=== PATIENT | female | born 1990 | race Two or more races ===

== ENCOUNTER 2016-12-03 02:49 | Observation (INO) | payer MEDICAID | END 2016-12-03 04:47 | disposition home or self-care (01) | DRG 566 | LOC: LDRP 02:49 | PROVIDERS: ADMIT Obstetrics & Gynecology; ATTEND Obstetrics & Gynecology | DX: O62.9 Abnormality of forces of labor, unspecified (principal); Z3A.36 36 weeks gestation of pregnancy | CPT/HCPCS: G0378 ×2; 59025; 81002 ==

== ENCOUNTER 2016-12-18 13:40 | Observation (INO) | payer MEDICAID | END 2016-12-18 14:40 | disposition home or self-care (01) | DRG 566 | LOC: LDRP 13:40 | PROVIDERS: ADMIT Specialist; ATTEND Specialist | DX: O42.92 Full-term premature rupture of membranes, unspecified as to length of time between rupture and onset of labor (principal); O26.893 Other specified pregnancy related conditions, third trimester; N89.8 Other specified noninflammatory disorders of vagina; Z3A.38 38 weeks gestation of pregnancy; R51 Headache | CPT/HCPCS: 59025; 81002; G0378 ==

== ENCOUNTER 2016-12-21 17:15 | Observation (INO) | payer MEDICAID ==
[~2016-12-21] VITALS: Ht 167.6 cm; Wt 71.7 kg
[2016-12-21] MEDS ORDERED: LACT. RINGERS/OXYTOCIN 20UNITS 1,000 ML IV SCH (21:02)
[2016-12-21] MEDS ORDERED: LACTATED RINGER'S 1,000 ML IV SCH (21:02)
[2016-12-21] MEDS ORDERED: DERMOPLAST 60ML BOTTLE TOP PRN (21:15)
[2016-12-21] MEDS ORDERED: NALBUPHINE HCL 10 MG/1ml INJECTION IV PRN (21:15)
[2016-12-21] MEDS ORDERED: LIDOCAINE 2%HCL (LOCAL ANESTH.) INJ 20ML MDV IJ ONE (21:15)
[2016-12-21] MEDS ORDERED: METHYLERGONOVINE MALEATE 0.2 MG/ML AMP IM PRN (21:15)
[2016-12-21] MEDS ORDERED: CARBOPROST TROMETHAMINE 250 MCG/1ML VIAL IM PRN (21:15)
[2016-12-21] MEDS ORDERED: PHISODERM TOP SOLN 240ML BTL TOP PRN (21:15)
[2016-12-21] MEDS ORDERED: PROMETHAZINE HCL 25 MG/ML 1ML IV PRN (21:15)
[2016-12-21] MEDS ORDERED: WITCH HAZEL-GLYCERIN PAD TOP PRN (21:15)
[2016-12-21 21:41] LABS: Urine Bilirubin Negative (Negative); Urine Blood TRACE /uL (Negative); Urine Color Yellow (Yellow); Urine Glucose Normal (Normal); Urine Ketone 1+ (Negative); Urine Nitrite Negative (Negative); Urine RBC <1 /hpf (0 - 4); Urine Squamous Epithelial Cell FEW /hpf (<5); Urine Urobilinogen Normal (Negative); Urine pH 6.5 (5.0-8.0)
[2016-12-21 21:41] LABS: Basophils # (auto) 0 uL; Basophils % (auto) 0.3 % (0.0-2.0); Eosinophils # (auto) 0 uL; Eosinophils % (auto) 0.4 % (0.0-7.0); Hematocrit 36.9 % (36.0-46.0); Hemoglobin 12.4 g/dL (12.2-16.2); Mean Corpuscular Hemoglobin 29.6 pg (28.0-32.0); Mean Corpuscular Hgb Conc. 33.7 g/dL (32.0-36.0); Mean Corpuscular Volume 87.8 fL (80.0-100.0); Mean Platelet Volume 11.7 fL (7.4-10.4); Monocytes # (auto) 0.6 uL; Monocytes % (auto) 6.4 % (0.0-12.0); Neutrophils # (auto) 6.3 uL; Neutrophils % (auto) 70.9 % (37.0-80.0); Platelet Count (auto) 166 10^3/uL (140-450); Red Cell Distribution Width 14.7 % (11.6-16.0); White Blood Cell 8.9 10^3/uL (4.4-10.8)
[2016-12-21 21:54] LABS: Albumin 2.8 g/dL (3.4-5.0); BUN/Creatinine Ratio 9.4; Calcium 8.6 mg/dL (8.5-10.1); Potassium 3.7 mmol/L (3.5-5.1)
[2016-12-21 21:55] LABS: INR 1.01 (0.9-1.15); Partial Thromboplastin Time 31.3 sec (22.64-33.71); Prothrombin Time 10.4 sec (9.37-12.3)
[2016-12-21 21:57] LABS: Bilirubin, Total 0.6 mg/dL (0.2-1.0)
[2016-12-21] MEDS ORDERED: LIDOCAINE HCL 2 %PF INJ 10ML AMP IJ ONE (22:30)
[2016-12-21] MEDS ORDERED: NALOXONE HCL 0.4 MG/ML VIAL IV ONE (22:30)
[2016-12-21] MEDS ORDERED: fentaNYL CITRATE 100 MCG/2 ML VL IV ONE (22:30)
[2016-12-21] MEDS ORDERED: ePHEDrine SULFATE 50 MG/ML AMP IV ONE (22:30)
[2016-12-21] MEDS ORDERED: fentaNYL W ROPIVACAINE 150 ML EPI SCH (22:30)
[2016-12-21] MEDS ORDERED: BUTORPHANOL TARTRATE 2 MG/1 ML VIAL ONE (23:01)
[2016-12-22] MEDS ORDERED: LACT. RINGERS/OXYTOCIN 20UNITS 500 ML IV ONE (02:13)
[2016-12-22] MEDS ORDERED: ACETAMINOPHEN 325 MG TAB PO PRN (02:15)
[2016-12-22] MEDS ORDERED: RHO (D) IMMUNE GLOBULIN 300 MCG INJ IM ONE (02:30)
[2016-12-22 08:00] VITALS: BP 116/73
[2016-12-22 12:00] VITALS: BP 116/72
[2016-12-22] MEDS: IBUPROFEN 600 MG TAB PO PRN ×2 (14:13→20:00)
[2016-12-22 16:00] VITALS: BP 110/63
[2016-12-22 18:00] VITALS: BP 117/67
[2016-12-22 19:30] VITALS: BP 131/79
[2016-12-22 23:15] VITALS: BP 122/76
[2016-12-23 04:00] VITALS: BP 108/56
[2016-12-23] MEDS ORDERED: PREN-145 OR (07:02)
[2016-12-23 07:23] VITALS: BP 100/57
[2016-12-23] MEDS: IBUPROFEN 600 MG TAB PO PRN (07:56)
== END 2016-12-23 11:45 | disposition home or self-care (01) | DRG 560 ==
LOC: LDRP 17:15
PROVIDERS: ADMIT Specialist; ATTEND Specialist
PROC: 10E0XZZ Delivery of Products of Conception, External Approach (ICD-10-PCS; principal; 2016-12-21)
DX: O77.0 Labor and delivery complicated by meconium in amniotic fluid (principal); O21.2 Late vomiting of pregnancy; O62.9 Abnormality of forces of labor, unspecified; O69.81X0 Labor and delivery complicated by cord around neck, without compression, not applicable or unspecified; Z37.0 Single live birth; Z3A.39 39 weeks gestation of pregnancy
CPT/HCPCS: 36415; 51702; 59025; 59409; 80053; 81001; 81002; 85025; 85610; 85730; 86850; 86900; 86901; 90384; 96372; G0378; J0595; J2590; 96365; 96366; 96375

== ENCOUNTER 2021-06-05 04:15 | Observation (INO) | payer MEDICAID ==
[~2021-06-05] VITALS: Ht 167.6 cm; Wt 78.0 kg
[~2021-06-05 04:15] MED LIST: PREN-145 OR
[2021-06-05] MEDS ORDERED: LACTATED RINGER'S 1,000 ML IV ONE (05:30)
[2021-06-05] MEDS ORDERED: ACETAMINOPHEN IV 1000 MG/100ML (10MG/ML) IV PRN (05:45)
[2021-06-05 05:54] LABS: Basophils # (auto) 0 10 ^3/uL (0-0.2); Basophils % (auto) 0.5 % (0.0-2.0); Eosinophils # (auto) 0.1 10 ^3/uL (0-0.8); Hematocrit 33.2 % (36.0-46.0); Hemoglobin 11.6 g/dL (12.2-16.2); Lymphocytes # (auto) 1.9 10 ^3/uL (0.4-5.4); Lymphocytes % (auto) 21.8 % (10.0-50.0); Mean Corpuscular Hemoglobin 29.8 pg (28.0-32.0); Mean Corpuscular Hgb Conc. 34.8 g/dL (32.0-36.0); Mean Corpuscular Volume 85.5 fL (80.0-100.0); Monocytes # (auto) 0.6 10 ^3/uL (0-1.3); Monocytes % (auto) 6.7 % (0.0-12.0); Neutrophils # (auto) 6.2 10 ^3/uL (1.6-8.6); Red Blood Cells 3.88 10^6/uL (4.0-5.20); Red Cell Distribution Width 13.4 % (11.8-14.3); White Blood Cell 8.9 10^3/uL (4.4-10.8)
[2021-06-05 06:14] LABS: Albumin 2.5 g/dL (3.4-5.0); Calcium 8.6 mg/dL (8.5-10.1); Potassium 4.3 mmol/L (3.5-5.1)
[2021-06-05 06:17] LABS: BUN/Creatinine Ratio 7.5; Bilirubin, Total 0.7 mg/dL (0.2-1.0); Total Protein 6.7 g/dL (6.4-8.2)
[2021-06-05 06:18] LABS: Alcohol, Urine < 3.0 mg/dL (0-10); Amphetamine Screen, Urine NEGATIVE (NEGATIVE); Barbiturate Scree,Urine NEGATIVE (NEGATIVE); Benzodiazephine Screen, Urine NEGATIVE (NEGATIVE); Cannabinoid Screen, Urine NEGATIVE (NEGATIVE); Cocaine Screen, Urine NEGATIVE (NEGATIVE); Opiate Scree,Urine NEGATIVE (NEGATIVE); Phencyclidine Screen, Urine NEGATIVE (NEGATIVE)
[2021-06-05] MEDS ORDERED: ACET-1156 PO ×2 (06:57)
[2021-06-05] MEDS ORDERED: BETAMETHASONE ACET (30mg/5ml) 5ml Vial 6mg/ml IM SCH (07:35)
[2021-06-05] MEDS ORDERED: TERBUTALINE SULFATE 1 MG/ML 1ML VIAL SC SCH (07:45)
[2021-06-05 11:11] LABS: Urine Bacteria MANY /hpf (None Seen); Urine Blood Negative /uL (Negative); Urine Specific Gravity 1.011 (1.001-1.035); Urine WBC 3 /hpf (0 - 5)
[2021-06-06] MEDS ORDERED: CALC500C3 PO (08:42)
== END 2021-06-05 08:50 | disposition home or self-care (01) ==
LOC: LDRP 04:15
PROVIDERS: ADMIT Obstetrics & Gynecology; ATTEND Obstetrics & Gynecology
DX: O26.893 Other specified pregnancy related conditions, third trimester (principal); K82.9 Disease of gallbladder, unspecified; R10.11 Right upper quadrant pain; Z3A.31 31 weeks gestation of pregnancy; Z79.899 Other long term (current) drug therapy
CPT/HCPCS: 36415; 59025; 76705; 80053; 80307; 81001; 81002; 82948; 82962; 85025; 96361; 96372; 96374; G0378; J0131; J0702; J3105; 96360

== ENCOUNTER 2021-06-06 07:48 | Observation (INO) | payer MEDICAID ==
[~2021-06-06] VITALS: Ht 154.9 cm; Wt 68.9 kg
[~2021-06-06 07:48] MED LIST changes: +ACET-1156 PO
[2021-06-06] MEDS ORDERED: CALC500C3 PO (08:42)
[2021-06-06] MEDS ORDERED: BETAMETHASONE ACET (30mg/5ml) 5ml Vial 6mg/ml IM SCH (10:00)
== END 2021-06-06 09:20 | disposition home or self-care (01) ==
LOC: LDRP 07:48
PROVIDERS: ADMIT Obstetrics & Gynecology; ATTEND Obstetrics & Gynecology
DX: O24.419 Gestational diabetes mellitus in pregnancy, unspecified control (principal); O60.03 Preterm labor without delivery, third trimester; O62.9 Abnormality of forces of labor, unspecified; Z3A.32 32 weeks gestation of pregnancy
CPT/HCPCS: 59025; 81002; 96372; G0378

== ENCOUNTER 2021-06-08 21:36 | Observation (INO) | payer MEDICAID ==
[~2021-06-08] VITALS: Ht 167.6 cm; Wt 77.6 kg
[~2021-06-08 21:36] MED LIST changes: +CALC500C3 PO
[2021-06-08] MEDS ORDERED: TERBUTALINE SULFATE 1 MG/ML 1ML VIAL SC SCH (22:00)
[2021-06-08] MEDS ORDERED: ceFAZolin 2 GM in D5W 5% 100 ML IV ONE (22:30)
[2021-06-08] MEDS ORDERED: LACTATED RINGER'S 1,000 ML IV ONE (22:30)
[2021-06-08] MEDS ORDERED: LACTATED RINGER'S 1,000 ML IV SCH (22:30)
[2021-06-08] MEDS ORDERED: ceFAZolin 1GM/50ML 50 ML IV ONE ×3 (23:00→23:45)
[2021-06-09] MEDS ORDERED: NIF10C GT (01:06)
== END 2021-06-09 01:15 | disposition home or self-care (01) ==
LOC: LDRP 21:36
PROVIDERS: ADMIT Obstetrics & Gynecology; ATTEND Obstetrics & Gynecology
DX: O60.03 Preterm labor without delivery, third trimester (principal); O62.9 Abnormality of forces of labor, unspecified; Z3A.32 32 weeks gestation of pregnancy; Z79.899 Other long term (current) drug therapy
CPT/HCPCS: 59025; 76815; 81002; 87086; 94760; 96361; 96365; 96366; 96372; G0378; J0690; J3105; 96360; J7060

== ENCOUNTER 2021-06-13 08:20 | Observation (INO) | payer MEDICAID ==
[~2021-06-13 08:20] MED LIST changes: +NIF10C GT
== END 2021-06-13 10:07 | disposition home or self-care (01) ==
LOC: LDRP 08:20
PROVIDERS: ADMIT Obstetrics & Gynecology; ATTEND Obstetrics & Gynecology
DX: O60.03 Preterm labor without delivery, third trimester (principal); O99.613 Diseases of the digestive system complicating pregnancy, third trimester; K80.20 Calculus of gallbladder without cholecystitis without obstruction; Z3A.33 33 weeks gestation of pregnancy
CPT/HCPCS: 59025; 76818; 81002; G0378

== ENCOUNTER 2021-06-20 07:30 | Observation (INO) | payer MEDICAID ==
[~2021-06-20 07:30] MED LIST changes: -NIF10C GT; +NIF10C PO
== END 2021-06-20 09:40 | disposition home or self-care (01) ==
LOC: LDRP 08:25
PROVIDERS: ADMIT Obstetrics & Gynecology; ATTEND Obstetrics & Gynecology
DX: O60.03 Preterm labor without delivery, third trimester (principal); Z3A.34 34 weeks gestation of pregnancy
CPT/HCPCS: 59025; 76818; 81002; 94760; G0378; G0379

== ENCOUNTER → 2023-10-11 | Outpatient (CLI) | payer MEDICAID ==
[~2023-10-11] MED LIST changes: -ACET-1156 PO; +ACET-1881 PO
== END | disposition home or self-care (01) ==
LOC: Rad HDHVI 10:54
PROVIDERS: ATTEND Internal Medicine Cardiovascular Disease
DX: R00.2 Palpitations (principal)
CPT/HCPCS: 93306